=== PATIENT | female | born 2000 | race Caucasian/White ===

== ENCOUNTER 2019-11-15 21:48 | Inpatient (IN) | payer OTHER ==
[~2019-11-15] VITALS: Ht 162.6 cm; Wt 70.1 kg
[2019-11-15 22:17] VITALS: BP 134/93
[2019-11-15] MEDS ORDERED: LACTATED RINGER'S 1000 ML IV STA (23:18)
[2019-11-15] MEDS ORDERED: LR 1,000 ML IV SCH (23:18)
--- NOTE | 2019-11-15 23:18 | HPEPDOC ---
Obstetrical History & Physical General Date of Admission History of Present Illness Patient is a at 40.5wks by LMP c/w 9wk US. Ctx since 11/14/2019 0230 but worsened and q4min since 1930 today. No LOF or VB. +FM. No headaches or visual changes. Chief Complaint: Contractions, term Information Provided By: Patient Care Care: Good Care Dating Final EDC: Nov 10, 2019 Final EDC by: LMP Antepartum Course Height (inches): 64 Pre- weight (lbs.): 127 Admission Weight (lbs.): 156 Change in Weight (lbs.): 31 Past Medical History Past Obstetrical History : Past Obstetrical History: Multigravida Type of Delivery: Spontaneous Vaginal Del. (VAVD) Sex of : Female Complications: No [employer] History: No pertinent history Past Medical History Medical History none Surgical History: Denies/None Family History Significant Family History: No pertinent family hx Social History Marital Status: Family situation: Spouse/partner home Psychosocial History: No pertinent psych hx * Smoker: non-smoker Alcohol: Denies Drugs: denies Abuse Violence Screening Have you been hit/kicked/slapp: No Have you been sexually assault: No Imunizations Tdap status: current Influenza Status: current Physical Examination Physical Examination GENERAL: Alert and oriented times three. BREAST: . ABDOMEN: Gravid and non-tender to touch. FETUS: Is vertex (VTX) by sterile vaginal examination (SVE), fetus is 3300 by Aayush. HEART RATE: Regular rate and rhythm. LUNGS: Clear to auscultation (CTA). EXTREMITIES: No edema. Laboratory Data CBC/BMP 6.6/10.8/31.9/180 Urine Culture: No Growth Pertinent Laboratoy Data Blood Type: O+ RBC Antibody Screen: Negative HIV: Negative Hepatitis B: Negative Rapid Plasma Reagin: Nonreactive Rubella: Immune Varicella: Immune Chlamydia/Gonorrhea: Negative Group B Streptococcus: Negative Cystic Fibrosis: Negative Glucose Tolerance Test: 92 Anatomy Ultrasound Ultrasound Date: July 11, 2019 Placenta Location: Anterior Normal Anatomy: No (dilated renal pelvis, choroid plexus cyst) Placenta Previa: No Estimated Weight (grams): 505 Steroid Therapy Steroid Therapy: No Vaginal Examination Dilation: 3 cm Effacement: 30% Station: -3 Cervical Consistency: Medium Cervical Position: Posterior Presentation: Cephalic presentation Assessment Heart Rate (FHR): 130 Variability: Moderate Accelerations: Positive Tocometer Contractions: Yes Frequency: regular, every 1-3 min. Multi-drug resistant Organism: No history of MDRO Assessment/Plan Assessment Patient is a at 40.5wks by LMP c/w 9wk US. She is being admitted for active labor. Fetus is reassuring. Expect and counselled on expectant with possible VAVD or CD if necessary. Also d/w complications of pelvic floor and perineal trauma and hemorrhage or trauma. All questions answered. Plan Admit and orient. Poker In and consent. Diet: Liquid. Group B Streptococcus (GBS) negative. Labs and intravenous (IV) per unit protocol. Counseled on Pitocin and augmentation of labor. Lactated Ringers (LR): Bolus 500 mL, then at 125 mL/hr. Anticipate normal spontaneous delivery (). C-S or VAVD as appropriate. Pain management per patient desires. Trish Eason MD Nov 15, 2019 23:17
[2019-11-15] MEDS ORDERED: FERR325T81 PO (23:23)
[2019-11-15] MEDS ORDERED: PREN29TA4 PO (23:23)
[2019-11-15] MEDS ORDERED: VITA100T59 PO (23:23)
[2019-11-15] MEDS ORDERED: IRON27TA2 PO (23:23)
[2019-11-15] MEDS ORDERED: BUTORPHANOL 2 MG/ML INJ (J0595) IV PRN (23:30)
[2019-11-15] MEDS ORDERED: MOM 30ML SUSPENSION UDC PO PRN (23:30)
[2019-11-15] MEDS ORDERED: diphenhydrAMINE 25MG CAP PO PRN (23:30)
[2019-11-15] MEDS ORDERED: PROMETHAZINE INJ 25 MG/ML VIAL (J2550) IV PRN (23:30)
[2019-11-15] MEDS ORDERED: CALCIUM CARBONATE 500 MG CHEW U/D PO PRN (23:30)
[2019-11-15 23:34] LABS: BASO % 0.4 % (0.0-1.0); EOS # 0.1 10^3/uL (0.0-0.5); EOS % 0.9 % (0.0-3.0); HEMATOCRIT 40.5 % (36.0-47.0); HEMOGLOBIN 13.4 g/dl (12.0-15.5); LYMPH # 1.9 10^3/uL (1.5-5.0); LYMPH % 24.3 % (24.0-44.0); MEAN CORPUSCULAR HEMOGLOBIN 29.4 pg (27.0-33.0); MEAN CORPUSCULAR HGB CONC 33.1 g/dl (32.0-36.5); MEAN CORPUSCULAR VOLUME 88.8 fl (80.0-96.0); MONO # 0.7 10^3/uL (0.0-0.8); MONO % 9.3 % (0.0-5.0); NEUTROPHILS # 5.1 10^3/uL (1.5-8.5); NEUTROPHILS % 64.7 % (36.0-66.0); PLATELET COUNT, AUTOMATED 158 10^3/uL (150-450); RED BLOOD COUNT 4.56 10^6/uL (4.00-5.40); WHITE BLOOD COUNT 7.8 10^3/uL (4.0-10.0)
[2019-11-15] MEDS ORDERED: FENTANYL 2MCG/ML ROPIVACAINE 0.2% IN 0.9% NACL 100ML IVBAG As Ordered ONE (23:41)
[2019-11-15 23:46] VITALS: BP 135/85
[2019-11-15 23:56] VITALS: BP 133/87
[2019-11-16] VITALS (38 sets, daily range): BP systolic 102–155; BP diastolic 57–86
[2019-11-16] MEDS: FENTANYL/ROPIVACAINE/NACL BAG 100 ML EPIDURAL SCH ×2 (00:07→03:35)
[2019-11-16] MEDS ORDERED: LACTATED RINGER'S 1000 ML IV PRN (00:15)
[2019-11-16] MEDS ORDERED: diphenhydrAMINE 50MG/ML VIAL (J1200) IV PRN (00:15)
[2019-11-16] MEDS ORDERED: REFRIGERATOR IV KEYS XX PRN (00:15)
[2019-11-16] MEDS ORDERED: ONDANSETRON 4MG/2ML VIAL IV PRN (00:15)
[2019-11-16] MEDS ORDERED: EPIDURAL COMMENT XX SCH (00:15)
[2019-11-16] MEDS ORDERED: NALOXONE INJ 0.4MG/1ML VIAL (J2310 PER 1MG) IV PRN (00:15)
[2019-11-16] MEDS ORDERED: EPIDURAL/PCA KEYS XX PRN (00:15)
[2019-11-16] MEDS ORDERED: ePHEDrine SULFATE 25 MG/5 ML(5MG/ML) SYRINGE As Ordered ONE (01:20)
[2019-11-16] MEDS: ePHEDrine SULFATE 25 MG/5 ML(5MG/ML) SYRINGE IV PRN ×3 (01:24→01:54)
[2019-11-16] MEDS ORDERED: LR 500 ML IV ONE (02:45)
[2019-11-16] MEDS ORDERED: OXYTOCIN 30 UNITS IN 0.9% NaCl 500ML IV BAG (J2590) As Ordered ONE (04:52)
[2019-11-16] MEDS ORDERED: OXYTOCIN DRIP 30 UNITS in IV 1 EA IV SCH (06:09)
[2019-11-16] MEDS ORDERED: MEASLES,MUMPS,RUBELLA VACCINE INJ (MMR-II) (90707) SC SCH (06:15)
[2019-11-16] MEDS ORDERED: RHOGAM 300 MCG (1500 IU) INJ (J2790) IM SCH (06:15)
[2019-11-16] MEDS ORDERED: METHYLERGONOVINE MALEATE 0.2 MG TAB PO PRN (06:15)
[2019-11-16] MEDS ORDERED: DIBUCAINE 1% OINTMENT 30GM TOP PRN (06:15)
[2019-11-16] MEDS ORDERED: ANUSOL HC CREAM 30GM TOP PRN (06:15)
--- NOTE | 2019-11-16 06:20 | DNPDOC ---
[facility] Delivery Note Delivery Note DATE OF DELIVERY: 11/16/2019 PREDELIVERY DIAGNOSIS: 40-6/7 weeks' gestation and labor. POST DELIVERY DIAGNOSIS: Delivered. PROCEDURE: Spontaneous vaginal delivery. COLLECTOR OF AQUARIUM SPECIMENS: Dr. Trish Eason ANESTHESIA: Epidural. ESTIMATED BLOOD LOSS: 300 mL. FINDINGS: 8 pound 6 ounce 3800gm girl , Score 8/9, nuchal cord times 1. DELIVERY SUMMARY: Patient was complete and pushing upon my arrival. Spontaneous vaginal delivery of OA head over intact perineum. Nose and mouth were bulb suction. Nuchal cord was noted and reduced. Shoulders and then body was easily delivered without problems at 0528. Baby was handed on mother's abdomen. Pitocin was bolused. Cord was clamped x2 and cut when pulsation stopped. Cord blood was obtained. Placenta was delivered spontaneously and intact with a 3 vessel cord at 0553. Perineum and vagina was inspected and found to have no lacerations. Repair was not needed. Lap, instrument, and needle count was correct. Mom and baby were bonding. Trish Eason MD Nov 16, 2019 06:20
[2019-11-16] MEDS ORDERED: cefTRIAXone SOD 1 GM in D5W MINI-BAG PLUS 50 ML IV ONE (07:45)
[2019-11-16] MEDS ORDERED: ONDANSETRON 4 MG TAB PO PRN (08:15)
[2019-11-16] MEDS: PRENATAL VITAMINS CHEWABLE TABLET PO SCH (09:43)
[2019-11-16] MEDS: DOCUSATE SODIUM 100 MG CAP PO SCH ×2 (09:43→19:58)
[2019-11-16] MEDS: IBUPROFEN 800 MG TAB PO PRN ×2 (10:54→19:57)
[2019-11-16] MEDS: ACETAMINOPHEN 500 MG TAB PO PRN ×2 (16:00→23:46)
[2019-11-17 06:00] VITALS: BP 110/65
[2019-11-17] MEDS: PRENATAL VITAMINS CHEWABLE TABLET PO SCH (07:37)
[2019-11-17] MEDS: DOCUSATE SODIUM 100 MG CAP PO SCH ×2 (07:37→20:24)
[2019-11-17] MEDS: IBUPROFEN 800 MG TAB PO PRN ×2 (07:37→15:39)
[2019-11-17] MEDS: ACETAMINOPHEN 500 MG TAB PO PRN ×2 (11:38→20:24)
[2019-11-17 18:00] VITALS: BP 119/83
[2019-11-18 06:00] VITALS: BP 129/82
[2019-11-18] MEDS: IBUPROFEN 800 MG TAB PO PRN (06:28)
[2019-11-18] MEDS: DOCUSATE SODIUM 100 MG CAP PO SCH (07:41)
[2019-11-18] MEDS: PRENATAL VITAMINS CHEWABLE TABLET PO SCH (07:41)
--- NOTE | 2019-11-30 11:43 | IPN ---
DATE: 11/17/2019 This lady is a 21-year-old 2, now para 2 admitted with contractions at 40 and 5 weeks of gestation. Spontaneous delivery with epidural, female, 8 pounds 6 ounces, 3800 grams, scores of 8 and 9 at 1 and 5 minutes, respectively. Blood pressure this morning 110/65, respirations 18, pulse 52, temperature is 97.1. Hemoglobin was 13.4, hematocrit 40.5, and platelets were 158. We discussed phlebitis, cystitis, mastitis, endometritis, and cellulitis, diet, exercise, pain management, perineal, breast, and wound care. Medications were dispensed at [facility]. She will have a 6 week checkup at [facility] ([facility]). In summary, we have a term gestation who delivered a live female , uncomplicated. All questions were answered, 20 minute discussion. WERO
== END 2019-11-18 11:55 | disposition home or self-care (01) | DRG 807 ==
LOC: M LDO 21:48 → M LDI 23:10 → M OBS 11-16 08:29
PROVIDERS: ADMIT Obstetrics & Gynecology; ATTEND Obstetrics & Gynecology
PROC: 10E0XZZ Delivery of Products of Conception, External Approach (ICD-10-PCS; principal; 2019-11-16)
DX: O48.0 Post-term pregnancy (principal); Z37.0 Single live birth; Z3A.40 40 weeks gestation of pregnancy; O69.81X0 Labor and delivery complicated by cord around neck, without compression, not applicable or unspecified